=== PATIENT | male | born 1975 | race Caucasian/White ===

== ENCOUNTER 2017-11-19 16:31 | Emergency (ER) | payer OTHER ==
[2017-11-19 16:36] VITALS: BP 117/55; PULSE 81; TEMP 99.6; BMI 26.6
--- NOTE | 2017-11-19 16:47 | PDOC ---
Rapid Medical Evaluation Chief Complaint: Pain Time Seen by Provider: 11/19/17 16:43 Medical Evaluation: Allergies Allergy/AdvReac Type Severity Reaction Status Date / Time No Known Allergies Allergy Verified 11/19/17 16:35 Vital Signs Temp Pulse Resp BP Pulse Ox 99.6 F 81 18 117/55 100 11/19/17 16:33 11/19/17 16:33 11/19/17 16:33 11/19/17 16:33 11/19/17 16:33 11/19/17 16:44 I have performed a brief in person evaluation of this patient. The patient presents with chief complaint of : right great toe pain after banding toe a a table today Pertinent PE findings: moderate tenderness over MTP and proximal phalange of right great toe I have ordered the following: x-ray of right great toe The patient will proceed to the ER for further evaluation 11/19/17 16:45 Discharge Disposition - Diagnosis Contusion of right great toe without damage to nail Qualifiers: Encounter type: initial encounter Qualified Code(s): S90.111A - Contusion of right great toe without damage to nail, initial encounter - Referrals - Patient Instructions - Post Discharge Activity
--- NOTE | 2017-11-19 17:10 | PDOC ---
History of Present Illness - General Chief Complaint: Pain Stated Complaint: RT TOE PAIN Time Seen by Provider: 11/19/17 16:43 - History of Present Illness Initial Comments: 11/19/17 17:08 42-year-old male without comorbidities presents for evaluation of right great toe pain after banging into the floor while walking today. He points to the IPJ of the right great toe at the area of his discomfort. Past History - Past Medical History Allergies/Adverse Reactions: Allergies Allergy/AdvReac Type Severity Reaction Status Date / Time No Known Allergies Allergy Verified 11/19/17 16:35 Home Medications: Ambulatory Orders NK [No Known Home Medication] 11/19/17 CVA: No COPD: No - Suicide/Smoking/Psychosocial Hx Smoking History: Never smoked Information on smoking cessation initiated: Yes Hx Alcohol Use: No Drug/Substance Use Hx: No Substance Use Type: None Review of Systems - Review of Systems Musculoskeletal: Yes: See HPI, Joint Pain All Other Systems: Reviewed and Negative *Physical Exam - Vital Signs Last Vital Signs Temp Pulse Resp BP Pulse Ox 99.6 F 81 18 117/55 100 11/19/17 16:33 11/19/17 16:33 11/19/17 16:33 11/19/17 16:33 11/19/17 16:33 - Physical Exam Comments: Right great toe skin color and temperature are normal. Range of motion is limited at the IPJ. Tenderness at the IPJ. He has no gross sensorimotor deficits. He is neurovascularly intact. 11/19/17 17:09 Medical Decision Making - Medical Decision Making 11/19/17 17:10 No acute fracture trauma destructive process in the right great toe on radiograph today *DC/Admit/Observation/Transfer Diagnosis at time of Disposition: Contusion of right great toe without damage to nail Qualifiers: Encounter type: initial encounter Qualified Code(s): S90.111A - Contusion of right great toe without damage to nail, initial encounter - Discharge Dispostion Disposition: HOME Condition at time of disposition: Stable Decision to Admit order: No - Referrals Referrals: Aries Dumont MD [Staff Physician] - - Patient Instructions Additional Instructions: He may weight-bear as tolerated with an open toed shoe for comfort. Follow-up with orthopedic surgery in 2-3 days for further evaluation and treatment options. Return to the emergency room should symptoms worsen or go unresolved. - Post Discharge Activity
== END 2017-11-19 17:21 | disposition home or self-care (01) ==
LOC: JERFT 16:31
DX: S90.111A Contusion of right great toe without damage to nail, initial encounter (principal); X58.XXXA Exposure to other specified factors, initial encounter; Y93.89 Activity, other specified; Y92.9 Unspecified place or not applicable
CPT/HCPCS: 73660-TC-FY; 99281-25

== ENCOUNTER 2018-12-14 18:32 | Emergency (ER) | payer OTHER ==
[2018-12-14 18:37] VITALS: BP 118/69; PULSE 82; TEMP 98; BMI 28.1
--- NOTE | 2018-12-14 18:44 | PDOC ---
History of Present Illness - General Chief Complaint: Pain Stated Complaint: splinter on rt thumb, pain Time Seen by Provider: 12/14/18 18:44 History Source: Patient Exam Limitations: No Limitations - History of Present Illness Initial Comments: 12/14/18 19:04 Chief complaint: Splinter to right thumb Patient is a healthy 43-year-old male, tetanus up-to-date who states that he got a splinter under the nail to his right thumb from a dresser. He tried to remove it, part of it broke off. This happened today. GENERAL/CONSTITUTIONAL: No fever, weakness. dizziness HEAD, EYES, EARS, NOSE AND THROAT: No change in vision. No ear pain or discharge. No sore throat. CARDIOVASCULAR: No chest pain RESPIRATORY: No shortness of breath or cough GASTROINTESTINAL: No pain, nausea, vomiting, diarrhea or constipation GENITOURINARY: No dysuria MUSCULOSKELETAL: No neck or back pain SKIN: No rash, + splinter right thumb NEUROLOGIC: No headache, vertigo, loss of consciousness, or loss of sensation. GENERAL: The patient is awake, alert, and fully oriented, in no acute distress. HEAD: Normal with no signs of trauma. EYES: Pupils equal, round and reactive to light, sclera anicteric, conjunctiva clear. ENT: pharynx: no erythema, no exudate, uvula midline NECK: supple CHEST: clear, nontender, rr EXTREMITIES: Normal range of motion, no edema. NEUROLOGICAL: Normal speech, normal gait. SKIN: Warm, Dry Is this a multiple visit Asthma Patient?: No Past History - Past Medical History Allergies/Adverse Reactions: Allergies Allergy/AdvReac Type Severity Reaction Status Date / Time No Known Allergies Allergy Verified 12/14/18 18:37 Home Medications: Ambulatory Orders Amox-Tr/K Cl [Augmentin - 875Mg Tablet] 1 tab PO BID #14 tablet 12/14/18 CVA: No COPD: No - Psycho Social/Smoking Cessation Hx Smoking History: Never smoked Information on smoking cessation initiated: No Hx Alcohol Use: No Drug/Substance Use Hx: No Substance Use Type: None *Physical Exam - Vital Signs Last Vital Signs Temp Pulse Resp BP Pulse Ox 98 F 82 18 118/69 99 12/14/18 18:35 12/14/18 18:35 12/14/18 18:35 12/14/18 18:35 12/14/18 18:35 Procedures - Additional Procedures Additional Procedures: other (foreign body removal right thumb) Progress: 12/14/18 19:24 Digital block done, nail was partially removed overwear the splinter was and splinter was removed, there was splinter into the nailbed which was also removed. Medical Decision Making - Medical Decision Making 12/14/18 19:05 43-year-old male with splinter in the right thumb under the nail. A digital block was done to prevent pain with removal of splinter and possible partial removal of nail. After splinter was removed. Patient will be placed on antibiotics Discussed issues, findings, results, applicable medications and treatments and follow-up. All these were understood and all questions were answered Discharge - Discharge Information Problems reviewed: Yes Clinical Impression/Diagnosis: Foreign body finger Condition: Stable Disposition: HOME - Admission No - Additional Discharge Information Prescriptions: Amox-Tr/K Cl [Augmentin - 875Mg Tablet] 1 tab PO BID #14 tablet - Follow up/Referral Referrals: Ty Pittman MD [Staff Physician] - - Patient Discharge Instructions Patient Printed Discharge Instructions: DI for Splinter Removal Additional Instructions: Soak in soapy warm water 2-3 times daily. Clean with soap and water 2-3 times daily, apply bacitracin Take Augmentin as prescribed until it is finished even if finger is better Have her reevaluated if redness, pus, fever or getting worse Followup with hand surgeon if getting worse - Post Discharge Activity
[2018-12-14] MEDS ORDERED: LIDOCAINE HCL 1%, 10 MG/ML (20ML VIAL) ONE (19:01)
== END 2018-12-14 19:27 | disposition home or self-care (01) ==
LOC: JERFT 18:32
PROC: 0HCFXZZ Extirpation of Matter from Right Hand Skin, External Approach (ICD-10-PCS; principal; 2018-12-14)
PROC: 0HCQXZZ Extirpation of Matter from Finger Nail, External Approach (ICD-10-PCS; 2018-12-14)
DX: S60.351A Superficial foreign body of right thumb, initial encounter (principal); W45.8XXA Other foreign body or object entering through skin, initial encounter; W22.03XA Walked into furniture, initial encounter; Y92.038 Other place in apartment as the place of occurrence of the external cause; Y93.89 Activity, other specified; Y99.8 Other external cause status
CPT/HCPCS: 10120-25; 99281-25